=== PATIENT | male | born 1955 | race Caucasian/White ===

== ENCOUNTER 2017-04-10 12:49 | Emergency (ER) | payer OTHER ==
[~2017-04-10] VITALS: Ht 185.4 cm; Wt 95.3 kg
[~2017-04-10 12:49] MED LIST: ASPIRIN81 M1 PO; ATENOLOL100 MG PO; IBUPROFEN800 MG PO; NAPROSYN500 MG PO; ZYLOPRIM150 MG PO
[2017-04-10 13:14] LABS: POINT-OF-CARE METER ID UU13113778
[2017-04-10 14:16] LABS: HEMATOCRIT 40.2 % (38.0-50.0); MCH 32.3 PG (29.0-34.0); MCHC 34.6 G/DL (30.0-36.0); MCV 93.5 FL (86-99); MEAN PLAT.VOLUME 9.5 uM^3 (9.0-12.4); PLATELET COUNT 261 K/uL (156-360); RBC DIS.WIDTH-CV 11.9 % (11.8-14.6); RBC DIS.WIDTH-SD 40.6 % (39-53); WHITE BLOOD COUNT 3.9 K/uL (4.1-10.2)
[2017-04-10 14:24] LABS: CHLORIDE 111 mEq/L (99-109); POTASSIUM 3.7 mEq/L (3.7-5.4); SODIUM 142 mEq/L (136-147)
[2017-04-10 14:26] LABS: GLUCOSE 90 mg/dL (70-99)
[2017-04-10 14:27] LABS: ANION GAP 12 MEQ/L (2-14)
[2017-04-10 14:30] LABS: GFR ESTIMATE (CALCULATED) > 59 mL/min/
[2017-04-10 14:31] LABS: UREA NITROGEN (BUN) 13 mg/dL (9-23)
[2017-04-10 14:37] LABS: TROP-I INTERPRETATION NEGATIVE; TROPONIN-I < 0.01 ng/mL (0.0-0.30)
[2017-04-10 15:56] LABS: D-DIMER ELISA < 150.00 ng/mLDDU (<230)
[2017-04-10 16:32] LABS: TROP-I INTERPRETATION NEGATIVE; TROPONIN-I < 0.01 ng/mL (0.0-0.30)
[2017-04-10 17:01] VITALS: BP 139/75
== END 2017-04-10 17:02 | disposition home or self-care (01) ==
LOC: EME 12:49
PROVIDERS: Nurse Practitioner Family
DX: R06.02 Shortness of breath (principal); R07.89 Other chest pain; G62.9 Polyneuropathy, unspecified; I10 Essential (primary) hypertension; R73.03 Prediabetes; Z87.442 Personal history of urinary calculi; Z79.82 Long term (current) use of aspirin
CPT/HCPCS: 71020; 80048; 82948; 84484; 85027; 85379; 93005; 99281; 99284; J7030